=== PATIENT | female | born 1985 | race Two or more races ===

== ENCOUNTER 2021-06-10 09:51 | Emergency (ER) | payer OTHER ==
[~2021-06-10] VITALS: Ht 165.1 cm; Wt 113.4 kg
[2021-06-10] MEDS ORDERED: PREN1TAB81 PO (10:14)
[2021-06-10 11:14] LABS: *BILIRUBIN,URIN NEGATIVE (NEGATIVE); *BLOOD, URINE 2+ (NEGATIVE); *CLARITY,URINE SLIGHTLY CLOUDY (CLEAR); *COLOR,URINE YELLOW (YELLOW); *KETONES,URINE NEGATIVE (NEGATIVE); *UROBILINOGEN,URINE 0.2 E.U./dl (NORMAL); LEUKOCYTE ESTERASE ,URINE 1+ (NEGATIVE); NITRITE, URINE NEGATIVE (NEGATIVE); PH,URINE 5.5 (5.0-8.0); UGLUCOSE NEGATIVE (NEGATIVE)
[2021-06-10 11:21] LABS: RBC,URINE 80-100 /HPF (0-3)
[2021-06-10] MEDS ORDERED: CEPH500C2 PO (11:21)
[2021-06-10 11:22] LABS: SQUAMOUS EPITHELIAL CELL,UR FEW /HPF (NONE SEEN)
[2021-06-10 11:23] LABS: WBC,URINE 50-80 /HPF (0-3)
--- NOTE | 2021-06-10 11:24 | NUR ---
Patient discharged to home in stable condition. Written and verbal after care instructions given. Patient verbalizes understanding of instructions. Stressed follow up or return to ER for worsening s/s.
[2021-06-10 11:25] LABS: MUCUS,URINE NONE SEEN /LPF (0-FEW)
[2021-06-10 11:26] LABS: BACTERIA,URINE FEW /HPF (NONE SEEN)
== END 2021-06-10 11:25 | disposition home or self-care (01) ==
LOC: ER 09:51
DX: O23.41 Unspecified infection of urinary tract in pregnancy, first trimester (principal); Z3A.08 8 weeks gestation of pregnancy; O46.92 Antepartum hemorrhage, unspecified, second trimester; Z88.0 Allergy status to penicillin
CPT/HCPCS: 76856; 87086; A4663